=== PATIENT | male | born 1955 | race Caucasian/White ===

== ENCOUNTER 2023-03-09 11:17 | Emergency (ER) | payer MEDICARE, OTHER ==
[2023-03-09] MEDS ORDERED: Ibuprofen 400 MG Tab PO ONE (12:06)
[2023-03-09 12:13] LABS: HEMATOCRIT 41.6 % (38.4-49.7); HEMOGLOBIN 14.1 g/dL (12.9-16.9); MEAN CORPUSCULAR HEMOGLOBIN 30.7 pg (31.6-35.5); MEAN CORPUSCULAR HGB CONC 33.9 g/dL (31.6-35.5); MEAN CORPUSCULAR VOLUME 90.6 fL (81.4-99.0); RED BLOOD CELL COUNT 4.59 M/uL (4.14-5.76); WHITE BLOOD CELL COUNT,WBC 10.8 K/uL (3.2-11.0)
[2023-03-09 12:32] LABS: PROTHROMBIN TIME 10.1 sec (9.2-10.6)
[2023-03-09 12:42] LABS: A/G RATIO 0.8 (1.2-2.2); ALANINE AMINOTRANSFERASE,ALT 20 U/L (12-78); ALBUMIN 3.3 g/dL (3.4-5.0); ALKALINE PHOSPHATASE 104 U/L (46-116); ANION GAP 11.7 mmol/L (5.0-14.0); ASPARTATE AMNIOTRANSFERASE,AST 16 U/L (15-37); BILIRUBIN TOTAL 1.1 mg/dL (0.2-1.0); BLOOD UREA NITROGEN,BUN 21 mg/dL (7-18); CARBON DIOXIDE,CO2 28 mmol/L (21-32); CHLORIDE,CL 101 mmol/L (100-108); CREATININE 1.1 mg/dL (0.8-1.3); EST CRCL DRUG DOSING (CG) 68.59 mL/min; ESTIMATED GFR 72 mL/min (>60); GLUCOSE RANDOM 89 mg/dL (74-106); POTASSIUM,K 4.7 mmol/L (3.6-5.2); PRO B-TYPE NATRIUR PEPT,BNPPRO 460 pg/mL (5-125); PROTEIN TOTAL,TP 7.3 g/dL (6.4-8.2); SODIUM,NA 136 mmol/L (140-148)
[2023-03-09] MEDS ORDERED: Aspirin 81 MG Tab.Chew PO ONE (12:48)
[2023-03-09] MEDS ORDERED: Nitroglycerin 0.4 MG Tab.SL SL ONE (12:49)
[2023-03-09] MEDS ORDERED: Nitroglycerin 0.4 MG Tab.SL SL PRN (12:56)
[2023-03-09] MEDS ORDERED: Sodium Chloride 0.9% 1,000 ML IV SCH (13:00)
== END 2023-03-09 14:00 ==
LOC: JP.ED 11:17
DX: J30.9 Allergic rhinitis, unspecified (principal); Z20.822 Contact with and (suspected) exposure to COVID-19; Z79.899 Other long term (current) drug therapy
CPT/HCPCS: 36415; 71046; 80053; 83605; 83880; 84145; 84484; 85027; 85379; 85610; 85651; 93005; 99285; A9270; J7030; U0002; 93010

== ENCOUNTER 2024-03-12 08:23 | Day surgery (SDC) | payer MEDICARE ==
[2024-03-12] MEDS: Sodium Chloride 0.9% 1,000 ML IV SCH (08:55)
[2024-03-12] MEDS ORDERED: fentaNYL 50 MCG/ML SDV ONE (10:22)
[2024-03-12] MEDS ORDERED: Propofol 200 MG/20 ML SDV ONE (10:22)
[2024-03-12] MEDS ORDERED: Midazolam 1 MG/ML 2 ML SDV ONE (10:22)
[2024-03-12] MEDS ORDERED: Glycopyrrolate 0.2 MG/ML 2 ML SDV ONE (11:12)
== END 2024-03-12 12:25 | disposition home or self-care (01) ==
LOC: JP.SDS 08:23
PROVIDERS: ATTEND Surgery
DX: Z12.11 Encounter for screening for malignant neoplasm of colon (principal); K57.30 Diverticulosis of large intestine without perforation or abscess without bleeding
CPT/HCPCS: J2250; J2704; J3010; J3490; J7030